=== PATIENT | male | born 1975 | race Caucasian/White ===

== ENCOUNTER 2023-03-16 12:30 | Emergency (ER) | payer OTHER ==
[2023-03-16 12:37] VITALS: BP 151/82; PULSE 73; RESP 17; TEMP 97.9; BMI 25.1
[2023-03-16] MEDS ORDERED: DIPHTH,PERTUSS(ACELL),TET 0.5 ML DISP.SYRIN IM ONE ×3 (13:17→14:00)
[2023-03-16] MEDS ORDERED: ONDANSETRON 4 MG TABLET PO ONE (13:17)
[2023-03-16] MEDS ORDERED: ONDANSETRON *ODT* 4 MG TABLET ONE (13:37)
== END 2023-03-16 14:09 | disposition home or self-care (01) ==
LOC: JER 12:30
PROC: 0HQ0XZZ Repair Scalp Skin, External Approach (ICD-10-PCS; principal; 2023-03-16)
PROC: 3E0234Z Introduction of Serum, Toxoid and Vaccine into Muscle, Percutaneous Approach (ICD-10-PCS; 2023-03-16)
DX: S01.01XA Laceration without foreign body of scalp, initial encounter (principal); R42 Dizziness and giddiness; R11.2 Nausea with vomiting, unspecified; W22.8XXA Striking against or struck by other objects, initial encounter; Y99.0 Civilian activity done for income or pay
CPT/HCPCS: 90715; 99283-25